=== PATIENT | male | born 2000 | race African-American/Black ===

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

== ENCOUNTER 2020-01-25 09:00 | Outpatient (RCR) | payer MEDICAID ==
[~2020-01-25 09:00] MED LIST changes: +ATIVAN 1MG T1 MG/TAB PO
== END 2020-02-21 | disposition home or self-care (01) ==
LOC: WSC
DX: S92.324A Nondisplaced fracture of second metatarsal bone, right foot, initial encounter for closed fracture (principal); S92.334A Nondisplaced fracture of third metatarsal bone, right foot, initial encounter for closed fracture

== ENCOUNTER 2020-10-05 20:54 | Emergency (ER) | payer MEDICAID ==
[~2020-10-05] VITALS: Ht 190.5 cm; Wt 80.0 kg
[2020-10-05 21:00] VITALS: TEMP 98
[2020-10-05 21:21] LABS: BASO % 0.4 % (0.0-2.0); EOS # 0.1 (0.0-0.7); EOS % 1.3 % (0-4.0); GRAN # 4.7 (1.4-6.5); HEMATOCRIT 44.7 % (36.0-47.0); HEMOGLOBIN 15.6 g/dl (12.5-16.1); LYMPH # 1.9 (1.2-3.4); LYMPH % 26.4 % (20.0-51.0); MEAN CELL VOLUME 85 fl (80.0-95.0); MEAN CORPUSCULAR HEMOGLOBIN 30 pg (26.0-32.0); MEAN CORPUSCULAR HGB CONC 35 g/dl (33.0-37.0); MEAN PLATELET VOLUME 9.1 fl (7.4-10.4); MONO # 0.4 (0.1-0.6); MONO % 5.8 % (1.7-9.3); PLATELET COUNT 239 K/mm3 (130-400); RED BLOOD COUNT 5.28 M/mm3 (4.20-5.60); REDCELL DISTRIBUTION WIDTH-CV 12.9 % (11.5-14.5)
[2020-10-05 21:43] LABS: TRICYCLIC ANTIDEPRESS URINE NEGATIVE
[2020-10-05 21:46] LABS: ACETAMINOPHEN < 10 ug/mL (10-30); ALANINE AMINOTRANSFERASE 18 U/L (4-49); ALBUMIN 4.8 gm/dL (3.5-5.0); ALCOHOL(ethanol),MEDICAL < 10 mg/dL; ALKALINE PHOSPHATASE 72 U/L (50-136); ANION GAP 9 mmol/L (7-16); AST,SGOT 29 U/L (15-37); BILIRUBIN,TOTAL 0.3 mg/dL (0.0-1.0); BLOOD UREA NITROGEN 12 mg/dL (9-20); CALCIUM 9.6 mg/dL (8.4-10.2); CARBON DIOXIDE 25 mmol/L (22-30); CHLORIDE 105 mmol/L (98-107); CREATININE, serum 0.86 (0.66-1.25); GLUCOSE 82 mg/dL (74-106); POTASSIUM 3.8 mmol/L (3.4-5.0); SALICYLATE < 1.0 mg/dL; SODIUM 139 mmol/L (137-145); TOTAL PROTEIN 8.2 gm/dL (6.4-8.2)
[2020-10-05 22:10] LABS: COLLECTION METHOD CLEAN CATCH
[2020-10-05 22:20] LABS: MUCOUS Present /lpf; PH 5 (5-8); SQUAMOUS EPITHELIAL 0-2 /hpf; URINE APPEARANCE Clear; URINE BACTERIA None Seen /hpf; URINE BILIRUBIN Negative (NEGATIVE); URINE BLOOD Negative (NEGATIVE); URINE COLOR Yellow; URINE GLUCOSE Negative (NEGATIVE); URINE KETONE 1+ (NEGATIVE); URINE LEUKOCYTE ESTERASE Negative (NEGATIVE); URINE NITRATE Negative (NEGATIVE); URINE PROTEIN(semi-quant) Negative (NEGATIVE); URINE RBC 0-2 /hpf
[2020-10-06 11:28] VITALS: BP 125/83; PULSE 73
== END 2020-10-06 11:28 ==
LOC: COL.ER 20:54
PROVIDERS: Emergency Medicine; Nurse Practitioner
DX: F32.9 Major depressive disorder, single episode, unspecified (principal); I10 Essential (primary) hypertension; F17.210 Nicotine dependence, cigarettes, uncomplicated; Z20.822 Contact with and (suspected) exposure to COVID-19; Z79.899 Other long term (current) drug therapy

== ENCOUNTER 2021-05-29 15:23 | Emergency (ER) | payer MEDICAID ==
[~2021-05-29] VITALS: Ht 193 cm; Wt 81.8 kg
[2021-05-29 16:33] VITALS: TEMP 98.3
[2021-05-29 18:30] LABS: BASO % 0.4 % (0.0-2.0); EOS % 0.4 % (0.0-4.0); GRAN # 5.1 K/mm3 (1.4-6.5); GRAN % 69.7 % (42.2-75.2); HEMOGLOBIN 16.2 g/dl (13.5-18.0); LYMPH # 1.8 K/mm3 (1.2-3.4); MEAN CELL VOLUME 84 fl (80.0-100.0); MEAN CORPUSCULAR HEMOGLOBIN 30 pg (27-31); MEAN CORPUSCULAR HGB CONC 35 g/dl (33.0-37.0); MEAN PLATELET VOLUME 8.5 fl (7.4-10.4); MONO # 0.4 K/mm3 (0.1-0.6); MONO % 5.2 % (1.7-9.3); PLATELET COUNT 239 K/mm3 (130-400); RED BLOOD COUNT 5.45 M/mm3 (4.20-5.60); REDCELL DISTRIBUTION WIDTH-CV 12.4 % (11.5-14.5)
[2021-05-29 18:55] LABS: ERYTHROCYTE SEDIMENTATION RATE 1 mm/hr (0-15)
[2021-05-29 20:30] VITALS: BP 133/74; PULSE 84
== END 2021-05-29 20:30 | disposition home or self-care (01) ==
LOC: COL.ER 15:23
PROVIDERS: Nurse Practitioner
DX: R06.02 Shortness of breath (principal); M25.532 Pain in left wrist; Z87.891 Personal history of nicotine dependence
CPT/HCPCS: J1885

== ENCOUNTER 2021-07-07 02:35 | Emergency (ER) | payer MEDICAID ==
[~2021-07-07] VITALS: Ht 190.5 cm; Wt 77.3 kg
[2021-07-07 02:47] VITALS: PULSE 98; TEMP 98
[2021-07-07] MEDS ORDERED: PROAIR DIGIHAL90 MCG IH (02:59)
[2021-07-07] MEDS ORDERED: MELATONIN3 M1 PO (02:59)
== END 2021-07-07 03:15 | disposition home or self-care (01) ==
LOC: COL.ER 02:35
DX: R06.02 Shortness of breath (principal)

== ENCOUNTER 2022-01-06 15:29 | Emergency (ER) | payer MEDICAID ==
[~2022-01-06] VITALS: Ht 190.5 cm; Wt 80.0 kg
[~2022-01-06 15:29] MED LIST changes: +MELATONIN3 M1 PO; +PROAIR DIGIHAL90 MCG IH
[2022-01-06 17:15] VITALS: BP 130/85; PULSE 81; TEMP 98.1
== END 2022-01-06 17:15 | disposition home or self-care (01) ==
LOC: COL.ER 15:29
DX: S02.31XA Fracture of orbital floor, right side, initial encounter for closed fracture (principal); Z28.310 Unvaccinated for COVID-19; Y04.8XXA Assault by other bodily force, initial encounter

== ENCOUNTER 2024-03-13 18:26 | Emergency (ER) | payer SELFPAY ==
[~2024-03-13] VITALS: Ht 190.5 cm; Wt 79.5 kg
[2024-03-13 18:31] VITALS: TEMP 97.3
[2024-03-13] MEDS ORDERED: LORazepam 2 MG/ML 1 ML VIAL IV ONE (19:00)
[2024-03-13] MEDS ORDERED: NS 1,000 ML IV ONE (19:00)
[2024-03-13 19:03] LABS: BASO % 0.3 % (0.0-2.0); EOS # 0.1 K/mm3 (0.0-0.7); EOS % 0.8 % (0.0-4.0); GRAN # 5.8 K/mm3 (1.4-6.5); HEMATOCRIT 45.3 % (42.0-52.0); HEMOGLOBIN 15.8 g/dl (13.5-18.0); LYMPH # 3.1 K/mm3 (1.2-3.4); LYMPH % 31.5 % (20.0-51.0); MEAN CELL VOLUME 87 fl (80.0-100.0); MEAN CORPUSCULAR HEMOGLOBIN 30 pg (27-31); MEAN CORPUSCULAR HGB CONC 35 g/dl (33.0-37.0); MEAN PLATELET VOLUME 9.5 fl (7.4-10.4); MONO # 0.7 K/mm3 (0.1-0.6); PLATELET COUNT 320 K/mm3 (130-400); RED BLOOD COUNT 5.21 M/mm3 (4.20-5.60); REDCELL DISTRIBUTION WIDTH-CV 12.9 % (11.5-14.5)
[2024-03-13 19:15] LABS: ALANINE AMINOTRANSFERASE 16 U/L (0-55); ALBUMIN 4.3 g/dL (3.5-5.0); ALKALINE PHOSPHATASE 71 U/L (40-150); ANION GAP 12 mmol/L (7-16); AST,SGOT 17 U/L (5-34); BILIRUBIN,TOTAL 0.6 mg/dL (0.2-1.2); BLOOD UREA NITROGEN 8 mg/dL (9-21); CALCIUM 9.6 mg/dL (8.4-10.2); CHLORIDE 103 mEq/L (98-107); CREATININE, serum 0.88 mg/dL (0.72-1.25); GLUCOSE 105 mg/dL (70-99); POTASSIUM 3.5 mEq/L (3.5-4.5); SODIUM 138 mEq/L (136-145); TOTAL PROTEIN 7.4 g/dl (6.2-8.1)
[2024-03-13 19:29] LABS: ALCOHOL(ethanol),MEDICAL < 10 mg/dL (0-10); SALICYLATE < 5.0 mg/dL (15.0-30.0); TROPONIN-I < 0.010 ng/mL (0.00-0.033)
[2024-03-13 19:36] LABS: COLLECTION METHOD CLEAN CATCH
[2024-03-13 19:53] LABS: URINE APPEARANCE CLEAR (CLEAR/HAZY); URINE BLOOD NEGATIVE (NEGATIVE); URINE COLOR YELLOW (YELLOW); URINE GLUCOSE NEGATIVE (NEGATIVE); URINE KETONE NEGATIVE (NEGATIVE); URINE NITRATE NEGATIVE (NEGATIVE); URINE PROTEIN(semi-quant) NEGATIVE (NEGATIVE)
[2024-03-13 20:24] LABS: TRICYCLIC ANTIDEPRESS URINE NEGATIVE (NEGATIVE)
[2024-03-14 00:01] VITALS: BP 102/74; PULSE 64
== END 2024-03-14 00:03 | disposition home or self-care (01) ==
LOC: COL.ER 18:26
PROVIDERS: Nurse Practitioner
DX: R07.9 Chest pain, unspecified (principal); F41.9 Anxiety disorder, unspecified; F17.200 Nicotine dependence, unspecified, uncomplicated
CPT/HCPCS: J2060; J7030

== ENCOUNTER 2024-03-17 10:16 | Emergency (ER) | payer SELFPAY ==
[~2024-03-17] VITALS: Ht 193 cm; Wt 72.7 kg
[2024-03-17] MEDS ORDERED: Albuterol/Ipratropium 3 MG-0.5 MG/3 ML Neb Soln IH ONE (11:00)
[2024-03-17 11:11] LABS: BASO % 0.3 % (0.0-2.0); EOS # 0.1 K/mm3 (0.0-0.7); EOS % 1.1 % (0.0-4.0); GRAN % 60.1 % (42.2-75.2); HEMATOCRIT 44.2 % (42.0-52.0); HEMOGLOBIN 15.7 g/dl (13.5-18.0); LYMPH # 2.1 K/mm3 (1.2-3.4); LYMPH % 31.2 % (20.0-51.0); MEAN CELL VOLUME 86 fl (80.0-100.0); MEAN CORPUSCULAR HEMOGLOBIN 31 pg (27-31); MEAN CORPUSCULAR HGB CONC 36 g/dl (33.0-37.0); MEAN PLATELET VOLUME 8.8 fl (7.4-10.4); MONO # 0.5 K/mm3 (0.1-0.6); PLATELET COUNT 283 K/mm3 (130-400); RED BLOOD COUNT 5.15 M/mm3 (4.20-5.60); REDCELL DISTRIBUTION WIDTH-CV 12.7 % (11.5-14.5)
[2024-03-17 11:41] LABS: ALANINE AMINOTRANSFERASE 15 U/L (0-55); ALBUMIN 4.1 g/dL (3.5-5.0); ALKALINE PHOSPHATASE 63 U/L (40-150); ANION GAP 10 mmol/L (7-16); AST,SGOT 17 U/L (5-34); BILIRUBIN,TOTAL 0.5 mg/dL (0.2-1.2); BLOOD UREA NITROGEN 10 mg/dL (9-21); CALCIUM 9.5 mg/dL (8.4-10.2); CHLORIDE 105 mEq/L (98-107); CREATININE, serum 0.93 mg/dL (0.72-1.25); GLUCOSE 94 mg/dL (70-99); POTASSIUM 4.2 mEq/L (3.5-4.5); SODIUM 140 mEq/L (136-145); TOTAL PROTEIN 6.9 g/dl (6.2-8.1)
[2024-03-17 11:57] LABS: ALCOHOL(ethanol),MEDICAL < 10 mg/dL (0-10); SALICYLATE < 5.0 mg/dL (15.0-30.0); TROPONIN-I < 0.010 ng/mL (0.00-0.033)
[2024-03-17] MEDS ORDERED: OLANZapine 10 MG,Water For Injection,Sterile 2 ML IM ONE (12:15)
[2024-03-17] MEDS ORDERED: LORazepam 2 MG/ML 1 ML VIAL IM ONE ×2 (14:30→17:00)
[2024-03-17 15:02] LABS: TRICYCLIC ANTIDEPRESS URINE NEGATIVE (NEGATIVE)
[2024-03-17] MEDS ORDERED: Haloperidol Lactate 5 MG/ML VIAL IM ONE (17:00)
[2024-03-17] MEDS ORDERED: diphenhydrAMINE 50 MG/ML 1 ML VIAL IM ONE (17:00)
[2024-03-17] MEDS ORDERED: Haloperidol 5 MG TAB PO ONE (18:45)
[2024-03-17] MEDS ORDERED: LORazepam 1 MG TAB PO ONE (18:45)
[2024-03-17] MEDS ORDERED: diphenhydrAMINE 25 MG CAP PO ONE (18:45)
[2024-03-18] MEDS ORDERED: LORazepam 1 MG TAB PO ONE (06:15)
[2024-03-18] MEDS ORDERED: OLANZapine 5 MG TAB PO SCH (09:00)
[2024-03-18] MEDS ORDERED: OLANZapine 10 MG,Water For Injection,Sterile 2 ML IM ONE (10:15)
--- NOTE | 2024-03-18 12:08 | NUR ---
hospital tray service worker met with patient's motherBassam #[phone] and her Home Furnishings Sales Representative and offered patient updates, explained the process of involuntary status and offered support. Bassam verbalized appreciation for the education. 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 Worker confirmed that patient's mother can attend the court hearing and provided address and phone number to [facility]. Worker provided mother her number and the weekend social workers number and will stay in touch and advise date/time of court hearing when we learn that information. Worker collaborated with Director of ED and patient's nurse regarding the above information. Per patient's wishes we were able to provide information to mother, Betsy and also give her patient's belongings. We await the court hearing and date at this time. Patient is being held involuntary at this time.
[2024-03-19] MEDS ORDERED: LORazepam 0.5 MG TAB PO ONE ×3 (00:45→07:00)
[2024-03-19] MEDS ORDERED: OLANZapine 10 MG,Water For Injection,Sterile 2 ML IM ONE (03:00)
[2024-03-19 10:21] VITALS: TEMP 98.6
[2024-03-19] MEDS ORDERED: LORazepam 1 MG TAB PO ONE (13:00)
[2024-03-19 14:29] VITALS: BP 142/103; PULSE 86
== END 2024-03-19 14:29 ==
LOC: COL.ER 10:16
PROVIDERS: Family Medicine
DX: F23 Brief psychotic disorder (principal)
CPT/HCPCS: G0463; J2359